=== PATIENT | male | born 1950 | race Caucasian/White ===

== ENCOUNTER 2019-08-31 10:16 | Outpatient (CLI) | payer MEDICARE, SELFPAY ==
--- NOTE | ~2019-08-31 | XR_ITS ---
EXAMINATION: XR shoulder RT min 2V DATE: 08/31/2019 10:41 INDICATION: 2 months of right shoulder pain after shoveling TECHNIQUE: AP internally and externally rotated, AP oblique externally rotated and transscapular Y vi ews of the right shoulder were obtained. COMPARISON: None FINDINGS: Old healed mid right clavicle fracture deformity. No other fractures identified.Alignment is otherwis e normal. Mild right glenohumeral and acromioclavicular osteoarthritis characterized by mild nonunifo rm joint space narrowing and small marginal osteophytes. Visualized portions of the right lung are cl ear. Soft tissues are unremarkable. IMPRESSION: 1. Old healed right clavicle fracture. No acute osseous abnormality. 2. Mild osteoarthritis at the right acromioclavicular and glenohumeral joints. Reviewed, dictated and finalized at location A.
== END 2019-08-31 10:17 | disposition home or self-care (01) ==
LOC: CHSIMG 10:18
PROVIDERS: PCP Internal Medicine; Visit Provider Internal Medicine
DX: M25.511 Pain in right shoulder (principal)
CPT/HCPCS: 73030

== ENCOUNTER 2019-09-08 10:37 | Outpatient (CLI) | payer MEDICARE, SELFPAY ==
--- NOTE | ~2019-09-08 | MR_ITS ---
EXAMINATION: MR shoulder RT wo con DATE: 09/08/2019 11:33 INDICATION: Right shoulder pain. TECHNIQUE: Magnetic resonance imaging (MRI) of the right shoulder was performed without intravenous c ontrast. Sequences included axial PD-weighted FS FSE, coronal oblique PD-weighted FS FSE and T2-weigh juan carlos FS FSE, and sagittal oblique T2-weighted FS FSE and T1-weighted FSE. COMPARISON: Right shoulder radiographs 08/31/2019 FINDINGS: Coracoacromial arch: The acromion undersurface is curved in morphology (type II). There is severe acromioclavicular joint osteoarthritis including inferiorly directed osteophytes. There is mild subacromial/subdeltoid bursit is. Rotator cuff: There is severe supraspinatus tendinopathy and moderate infraspinatus tendinopathy. Teres minor tendo n is normal. There is moderate subscapularis tendinopathy. There is no asymmetric fatty atrophy of th e rotator cuff muscle bellies. Biceps tendon and glenoid labrum: Biceps tendon is in bicipital groove. There is severe intra-articular biceps tendinopathy. There is a tear of superior labrum from 1:00 to 10:00 (SLAP tear). Fluid: There is a small glenohumeral joint effusion. Bones/cartilage: There is a partial thickness cartilage loss of superior glenoid. There is cartilage surface irregular ity of humeral head. Osteophytes are noted. IMPRESSION: 1. Severe rotator cuff tendinopathy. No tear. 2. Moderate glenohumeral joint chondrosis. SLAP tear. 3. Severe intra-articular biceps tendinopathy. 4. Severe acromioclavicular joint osteoarthritis. 5. Small glenohumeral joint effusion. 6. Mild subacromial/subdeltoid bursitis. Reviewed, dictated and finalized at location A.
== END 2019-09-08 10:38 | disposition home or self-care (01) ==
LOC: CHSIMG 10:38
PROVIDERS: PCP Internal Medicine; Visit Provider Internal Medicine
DX: M25.511 Pain in right shoulder (principal)
CPT/HCPCS: 73221

== ENCOUNTER 2019-09-15 07:04 | Outpatient (CLI) | payer MEDICARE, SELFPAY ==
[2019-09-15 08:11] LABS: Add Urine Microscopic? NO; Appearance Urine Clear (Clear); Bilirubin Urine Negative (Negative); Blood Urine Negative (Negative); Color Urine Yellow (Yellow); Glucose Urine UA Negative (Negative); Ketones Urine Negative (Negative); Leukocyte Esterase Ur Negative (Negative); Nitrate Urine Negative (Negative); Protein Urine Negative (Negative)
[2019-09-15 08:28] LABS: Alanine Aminotransferase 40 U/L (16-63); Albumin Level 3.8 g/dL (3.4-5.0); Alkaline Phosphatase 67 U/L (46-116); Anion Gap 11.3 mmol/L (7-16); Aspartate Amino Transferase 37 U/L (15-37); Bilirubin,Total 0.7 mg/dL (0.00-1.00); Blood Urea Nitrogen 21 mg/dL (7-18); Calcium 9.1 mg/dL (8.5-10.1); Carbon Dioxide 29 mmol/L (21-32); Chloride 103 mmol/L (98-108); Cholesterol 135 mg/dL (0-200); Creatine Kinase 234 U/L (39-308); Estimated Glomerular Filt Rate > 60; Glucose 94 mg/dL (70-99); HDL Direct 55 mg/dL (40-60); LDL Cholesterol Calculated 62 mg/dL (<130); Osmolality Calculated 291 mOsm/kg (285-295); Potassium 4.3 mmol/L (3.5-5.1); Prostate Specific Antigen 0.4 ng/mL (< OR = 4.0); Sodium 139 mmol/L (136-145); Total Protein 7.2 g/dL (6.4-8.2); Triglycerides 91 mg/dL (0-150)
== END 2019-09-15 07:05 | disposition home or self-care (01) ==
LOC: CHSLAB 07:06
PROVIDERS: PCP Internal Medicine; Visit Provider Internal Medicine
DX: E78.2 Mixed hyperlipidemia (principal); I10 Essential (primary) hypertension; Z12.5 Encounter for screening for malignant neoplasm of prostate
CPT/HCPCS: 36415; 80053; 80061; 81003; 82550; 84153; G0103

== ENCOUNTER 2019-09-18 16:52 | Outpatient (RCR) | payer MEDICARE, SELFPAY ==
--- NOTE | 2019-09-24 06:59 | PTOPEVAL ---
Thank you for referring Huang Singh to [facility] [place]. Please review, sign, date and return this plan of care VENITA. I agree with and certify that the following plan of care is medically necessary. Referring Physician Date Admitting Provider: Attending Provider: Rashaun Juárez MD Referring Provider: *PT Outpatient Evaluation Start: 09/18/19 17:06 Freq: Status: Active Protocol: Document 09/18/19 17:07 MECCA (Rec: 09/18/19 18:07 MECCA [id number]) Therapy Assessment Status Assessment Status Assessment Status Evaluation Evaluation Information Problem Diagnosis right adhesive capsulitis Onset 06/28/19 Subjective Information Pt. reports that he injured Query Text:As Reported By Patient/ the shoulder in May after Family shoveling. He notes a gradual increase in stiffness since doing the shoveling. He notes that reaching behind the back and overhead cause the most pain. He reports that he has had some pain with sleeping on the right, but it is getting easier. He states that his goal is to decrease pain and improve mobility. Prior Level of Function Activity Level (Last 3 Months) Occupation retired Hand Dominance Right Activity of Daily Living Ability Independent Indoor/Home Mobility Independent Community Mobility Independent Stairs Ability Independent Functional Cognition (Planning, Shopping Independent , Taking Medications) Cooking Yes Cleaning Yes Laundry Yes Shopping Yes Driving Yes Pain Assessment Pain Scale Pain Scale Used Numeric (1 - 10) Self Report Pain Assessment Right Shoulder(s) Reported Pain Level 5 Pain Score Pain Score 5: Self Report Upper Extremity Range of Motion General Upper Extremity Range of Motion Gross Upper Extremity Range of Motion right shoulder flexion 113 Comments degrees right shoulder ER 72 degrees right shoulder IR 21 degrees right shoulder horizontal adduction limited to 10 degrees Upper Extremity Muscle Strength Testing General Upper Extremity Strength Gross Upper Extremity Strength Comments right shoulder flexion 4/5
== END 2019-10-25 17:04 | disposition home or self-care (01) ==
LOC: CHSPT 16:52
PROVIDERS: PCP Internal Medicine; Visit Provider Internal Medicine
DX: M25.511 Pain in right shoulder (principal)
CPT/HCPCS: 97014; 97110; 97140; 97161; G0283

== ENCOUNTER 2019-10-06 07:50 | Outpatient (CLI) | payer MEDICARE, SELFPAY ==
[2019-10-08 12:13] LABS: SARS-CoV-2 RNA PCR Positive
== END 2019-10-06 07:51 | disposition home or self-care (01) ==
LOC: CHSLAB 07:52
PROVIDERS: PCP Internal Medicine; Visit Provider Internal Medicine
DX: U07.1 COVID-19 (principal)
CPT/HCPCS: 87635; C9803; U0003

== ENCOUNTER 2020-03-24 10:29 | Outpatient (CLI) | payer MEDICARE, SELFPAY ==
--- NOTE | ~2020-03-24 | US_ITS ---
EXAMINATION: US carotid duplex BI DATE: 03/24/2020 11:22 INDICATION: Bilateral carotid stenosis. TECHNIQUE: Grayscale, color Doppler, and pulsed Doppler images of the cervical carotid arteries were obtained. The degree of vessel stenosis is placed in one of the following categories: normal, <50%, 5 0-69%, >=70% but less than near-occlusion, near-occlusion, or total occlusion. Note that percent sten osis relative to normal distal artery lumen diameter is indirectly measured from velocity measurement s as described by Heladio, et al. Radiology 2003; 229:340-346. COMPARISON: Ultrasound 03/06/2019 FINDINGS: Bradycardia is noted. RIGHT: The right common carotid artery (CCA) peak systolic velocity (PSV) is 115 cm/s. The right internal ca rotid artery (ICA) PSV is 98 cm/s. The right ICA end-diastolic velocity (EDV) is 23 cm/s. The right I CA/CCA PSV ratio is 0.9. Grayscale and color Doppler images yield an estimate of <50% diameter reduct ion from plaque in the ICA. There is antegrade flow in the right vertebral artery. LEFT: The left CCA PSV is 101 cm/s. The left ICA PSV is 222 cm/s. The left ICA EDV is 60 cm/s. The left ICA /CCA PSV ratio is 2.2. Grayscale and color Doppler images yield an estimate of >=50% diameter reducti on from plaque in the ICA. There is antegrade flow in the left vertebral artery. IMPRESSION: 1. <50% stenosis in the right internal carotid artery. 2. 50-69% stenosis in the left internal carotid artery. 3. Bradycardia. Reviewed, dictated and finalized at location A. ERY HEAD FORMER
== END 2020-03-24 10:30 | disposition home or self-care (01) ==
LOC: CHSIMG 10:30
PROVIDERS: PCP Internal Medicine; Visit Provider Internal Medicine
DX: I65.23 Occlusion and stenosis of bilateral carotid arteries (principal)
CPT/HCPCS: 93880

== ENCOUNTER 2020-03-26 07:21 | Outpatient (CLI) | payer MEDICARE, SELFPAY ==
[2020-03-26 08:41] LABS: Alanine Aminotransferase 54 U/L (16-63); Alkaline Phosphatase 67 U/L (46-116); Anion Gap 6 mmol/L (8-16); Aspartate Amino Transferase 28 U/L (15-37); Bilirubin,Total 0.7 mg/dL (0.00-1.00); Blood Urea Nitrogen 23 mg/dL (7-18); Calcium 9.1 mg/dL (8.5-10.1); Carbon Dioxide 32 mmol/L (21-32); Chloride 99 mmol/L (98-108); Cholesterol 145 mg/dL (0-200); Creatine Kinase 51 U/L (39-308); Estimated Glomerular Filt Rate 59; Glucose 88 mg/dL (70-99); HDL Direct 52 mg/dL (40-60); LDL Cholesterol Calculated 56 mg/dL (<130); Osmolality Calculated 286 mOsm/kg (285-295); Potassium 4.1 mmol/L (3.5-5.1); Sodium 137 mmol/L (136-145); Total Protein 8.2 g/dL (6.4-8.2); Triglycerides 186 mg/dL (0-150)
[2020-03-26 10:37] LABS: Add Urine Microscopic? NO; Appearance Urine Clear (Clear); Bilirubin Urine Negative (Negative); Blood Urine Negative (Negative); Color Urine Yellow (Yellow); Glucose Urine UA Negative (Negative); Ketones Urine Negative (Negative); Leukocyte Esterase Ur Negative (Negative); Nitrate Urine Negative (Negative); Protein Urine Negative (Negative); Specific Grav Ur 1.025 (1.010-1.020); Urobilinogen Urine 0.2 mg/dL (0.2-1.0)
== END 2020-03-26 07:22 | disposition home or self-care (01) ==
PROVIDERS: PCP Internal Medicine; Visit Provider Internal Medicine
DX: E78.2 Mixed hyperlipidemia (principal); I10 Essential (primary) hypertension
CPT/HCPCS: 36415; 80053; 80061; 81003; 82550

== ENCOUNTER 2020-09-23 06:56 | Outpatient (CLI) | payer MEDICARE, SELFPAY ==
[2020-09-23 08:17] LABS: Alanine Aminotransferase 39 U/L (16-63); Albumin Level 3.9 g/dL (3.4-5.0); Alkaline Phosphatase 68 U/L (46-116); Anion Gap 13 mmol/L (8-16); Aspartate Amino Transferase 36 U/L (15-37); Bilirubin,Total 0.6 mg/dL (0.00-1.00); Blood Urea Nitrogen 27 mg/dL (7-18); Carbon Dioxide 27 mmol/L (21-32); Chloride 103 mmol/L (98-108); Cholesterol 135 mg/dL (0-200); Creatine Kinase 118 U/L (39-308); Estimated Glomerular Filt Rate > 60; Glucose 100 mg/dL (70-99); HDL Direct 38 mg/dL (40-60); LDL Cholesterol Calculated 60 mg/dL (<130); Osmolality Calculated 301 mOsm/kg (285-295); Potassium 4.7 mmol/L (3.5-5.1); Prostate Specific Antigen 0.6 ng/mL (< OR = 4.0); Sodium 143 mmol/L (136-145); Triglycerides 183 mg/dL (0-150)
[2020-09-23 10:06] LABS: Add Urine Microscopic? NO; Appearance Urine Clear (Clear); Bilirubin Urine Negative (Negative); Blood Urine Negative (Negative); Color Urine Light Yellow (Yellow); Glucose Urine UA Negative (Negative); Ketones Urine Negative (Negative); Leukocyte Esterase Ur Negative (Negative); Nitrate Urine Negative (Negative); Protein Urine Negative (Negative); Specific Grav Ur 1.015 (1.010-1.020); Urobilinogen Urine 0.2 mg/dL (0.2-1.0)
== END 2020-09-23 06:57 | disposition home or self-care (01) ==
LOC: CHSLAB 06:58
PROVIDERS: PCP Internal Medicine; Visit Provider Internal Medicine
DX: E78.2 Mixed hyperlipidemia (principal); I10 Essential (primary) hypertension; Z12.5 Encounter for screening for malignant neoplasm of prostate
CPT/HCPCS: 36415; 80053; 80061; 81003; 82550; 84153; G0103

== ENCOUNTER 2021-03-11 12:29 | Outpatient (CLI) | payer MEDICARE, SELFPAY ==
--- NOTE | ~2021-03-11 | US_ITS ---
EXAMINATION: US carotid duplex BI EXAM DATE: 03/11/2021 12:56 INDICATION: B/L carotid stenosis . TECHNIQUE: Grayscale, color and pulsed Doppler images of the cervical carotid arteries were obtained . The degree of vessel stenosis is placed in one of the following categories: normal, <50% stenosis, 50-69% stenosis, >=70% stenosis but less than near-occlusion, near-occlusion, or occlusion. Note that percent stenosis relative to normal distal artery lumen diameter is indirectly measured from velocit y measurements as described by Heladio, et al. Radiology 2003; 229:340-346. Comparison is made to prior examination from 03/24/2020. FINDINGS: RIGHT SIDE: Right common carotid artery peak systolic velocity (PSV in cm/s): 116 Right bulb/internal carotid artery peak systolic velocity (PSV in cm/s): 132 Right internal carotid artery end diastolic velocity (EDV in cm/s): 22 Right ICA/CCA peak systolic ratio: 1.1 Right external carotid artery peak systolic velocity (PSV in cm/s): 122 Right vertebral artery antegrade flow: yes There is mild carotid bulb plaque with discordant mildly elevated velocity. Visually, less than 50% stenosis category. LEFT SIDE: Left common carotid artery peak systolic velocity (PSV in cm/s): 98 Left bulb/internal carotid artery peak systolic velocity (PSV in cm/s): 239 Left internal carotid artery end diastolic velocity (EDV in cm/s): 48 Left ICA/CCA peak systolic ratio: 2.4 Left external carotid artery peak systolic velocity (PSV in cm/s): 109 Left vertebral artery antegrade flow: yes There is moderate right carotid bulb arteriosclerosis with moderately elevated velocity, visually 50- 69% stenosis. IMPRESSION: 1. Less than 50 percent stenosis in the right internal carotid artery. 2. 50-69% stenosis left internal carotid artery. Reviewed, dictated and finalized at location A. ATIONS MANAGEMENT TRAINEE
== END 2021-03-11 12:30 | disposition home or self-care (01) ==
LOC: CHSIMG 12:31
PROVIDERS: PCP Internal Medicine; Visit Provider Internal Medicine
DX: I65.23 Occlusion and stenosis of bilateral carotid arteries (principal)
CPT/HCPCS: 93880

== ENCOUNTER 2021-03-30 07:07 | Outpatient (CLI) | payer MEDICARE, SELFPAY ==
[2021-03-30 07:36] LABS: Hemoglobin A1C 5.2 % (<5.7)
[2021-03-30 08:16] LABS: Add Urine Microscopic? NO; Appearance Urine Clear (Clear); Bilirubin Urine Negative (Negative); Blood Urine Negative (Negative); Color Urine Light Yellow (Yellow); Glucose Urine UA Negative (Negative); Ketones Urine Negative (Negative); Leukocyte Esterase Ur Negative (Negative); Nitrate Urine Negative (Negative); Protein Urine Negative (Negative); Urobilinogen Urine 0.2 mg/dL (0.2-1.0)
[2021-03-30 09:16] LABS: Alanine Aminotransferase 41 U/L (16-63); Albumin Level 4.1 g/dL (3.4-5.0); Alkaline Phosphatase 71 U/L (46-116); Anion Gap 10 mmol/L (8-16); Aspartate Amino Transferase 26 U/L (15-37); Bilirubin,Total 0.5 mg/dL (0.00-1.00); Blood Urea Nitrogen 23 mg/dL (7-18); Calcium 8.8 mg/dL (8.5-10.1); Carbon Dioxide 28 mmol/L (21-32); Chloride 101 mmol/L (98-108); Cholesterol 135 mg/dL (0-200); Creatine Kinase 82 U/L (39-308); Estimated Glomerular Filt Rate > 60; Glucose 99 mg/dL (70-99); HDL Direct 45 mg/dL (40-60); LDL Cholesterol Calculated 61 mg/dL (<130); Osmolality Calculated 291 mOsm/kg (285-295); Potassium 4.4 mmol/L (3.5-5.1); Sodium 139 mmol/L (136-145); Total Protein 7.3 g/dL (6.4-8.2); Triglycerides 143 mg/dL (0-150)
== END 2021-03-30 07:08 | disposition home or self-care (01) ==
LOC: CHSLAB 07:09
PROVIDERS: PCP Internal Medicine; Visit Provider Internal Medicine
DX: R73.01 Impaired fasting glucose (principal); E78.2 Mixed hyperlipidemia; I10 Essential (primary) hypertension
CPT/HCPCS: 36415; 80053; 80061; 81003; 82550; 83036

== ENCOUNTER 2021-09-30 06:57 | Outpatient (CLI) | payer MEDICARE, SELFPAY ==
[2021-09-30 07:13] LABS: Add Urine Microscopic? NO; Appearance Urine Clear (Clear); Basophils Absolute Auto 0.06 K/mm3 (0.00-0.10); Basophils Percent Auto 1.1 % (0.0-1.0); Bilirubin Urine Negative (Negative); Blood Urine Negative (Negative); Color Urine Yellow (Yellow); Eosinophils Absolute Auto 0.18 K/mm3 (0.02-0.50); Eosinophils Percent Auto 3.3 % (1.0-6.0); Glucose Urine UA Negative (Negative); Hematocrit 41.4 % (37.0-46.0); Hemoglobin 14.2 g/dL (12.4-15.3); Immature Granulocyte Absolute 0.02 K/mm3 (0.00-0.00); Immature Granulocyte Percent A 0.4 % (0.0-0.0); Ketones Urine Negative (Negative); Leukocyte Esterase Ur Negative (Negative); Lymphocytes Absolute Auto 1.46 K/mm3 (1.10-4.50); Mean Corpuscular HGB Conc 34.3 g/dL (32.0-36.0); Mean Corpuscular Hemoglobin 32.6 pg (27.0-31.0); Mean Corpuscular Volume 95.2 fL (78.0-102.0); Mean Platelet Volume 10.1 fl (8.7-11.0); Monocytes Absolute Auto 0.54 K/mm3 (0.10-0.90); Neutrophils Absolute Auto 3.2 K/mm3 (1.7-7.2); Neutrophils Percent Auto 58.2 % (50.0-70.0); Nitrate Urine Negative (Negative); Platelet Count Result 198 K/mm3 (150-420); Protein Urine Negative (Negative); Red Blood Count 4.35 M/mm3 (4.70-6.10); Urobilinogen Urine 0.2 mg/dL (0.2-1.0); White Blood Count 5.4 K/mm3 (4.8-10.8); pH Urine 6.5 (5.0-8.0)
[2021-09-30 08:04] LABS: Alanine Aminotransferase 36 U/L (16-63); Albumin Level 3.9 g/dL (3.4-5.0); Alkaline Phosphatase 68 U/L (46-116); Anion Gap 6 mmol/L (8-16); Aspartate Amino Transferase 26 U/L (15-37); Bilirubin,Total 0.7 mg/dL (0.00-1.00); Blood Urea Nitrogen 23 mg/dL (7-18); Carbon Dioxide 29 mmol/L (21-32); Chloride 104 mmol/L (98-108); Cholesterol 129 mg/dL (0-200); Creatine Kinase 99 U/L (39-308); Estimated Glomerular Filt Rate 60; Glucose 96 mg/dL (70-99); HDL Direct 39 mg/dL (40-60); LDL Cholesterol Calculated 56 mg/dL (<130); Osmolality Calculated 291 mOsm/kg (285-295); Potassium 4.3 mmol/L (3.5-5.1); Prostate Specific Antigen 0.5 ng/mL (< OR = 4.0); Sodium 139 mmol/L (136-145); Total Protein 6.9 g/dL (6.4-8.2); Triglycerides 168 mg/dL (0-150)
== END 2021-09-30 06:58 | disposition home or self-care (01) ==
LOC: CHSLAB 06:59
PROVIDERS: PCP Internal Medicine; Visit Provider Internal Medicine
DX: E78.2 Mixed hyperlipidemia (principal); I10 Essential (primary) hypertension; Z00.00 Encounter for general adult medical examination without abnormal findings; K58.2 Mixed irritable bowel syndrome; K21.9 Gastro-esophageal reflux disease without esophagitis; Z12.5 Encounter for screening for malignant neoplasm of prostate
CPT/HCPCS: 36415; 80053; 80061; 81003; 82550; 84153; 85025; G0103

== ENCOUNTER 2022-03-24 12:20 | Outpatient (CLI) | payer MEDICARE, SELFPAY ==
--- NOTE | ~2022-03-24 | US_ITS ---
EXAMINATION: US carotid duplex BI DATE: 03/24/2022 13:12 INDICATION: Bilateral carotid artery stenosis TECHNIQUE: Grayscale, color Doppler, and pulsed Doppler images of the cervical carotid arteries were obtained. The degree of vessel stenosis is placed in one of the following categories: normal, <50%, 5 0-69%, >=70% but less than near-occlusion, near-occlusion, or total occlusion. Note that percent sten osis relative to normal distal artery lumen diameter is indirectly measured from velocity measurement s as described by Heladio, et al. Radiology 2003; 229:340-346. COMPARISON: 03/11/2021 FINDINGS: RIGHT: The right common carotid artery (CCA) peak systolic velocity (PSV) is 94 cm/s. The right internal car otid artery (ICA) PSV is 100 cm/s. The right ICA end-diastolic velocity (EDV) is 31 cm/s. The right I CA/CCA PSV ratio is 1.1. Grayscale and color Doppler images yield an estimate of <50% diameter reduct ion from plaque in the ICA. The external carotid artery (ECA) PSV is 127 cm/s. There is antegrade cristal w in the right vertebral artery. LEFT: The left CCA PSV is 110 cm/s. The left ICA PSV is 249 cm/s. The left ICA EDV is 51 cm/s. The left ICA /CCA PSV ratio is 2.3. Grayscale and color Doppler images yield an estimate of >=70% (but less than n ear occlusion) diameter reduction from plaque in the ICA. The ECA PSV is 123 cm/s. There is antegrade flow in the left vertebral artery. IMPRESSION: 1. <50% stenosis in the right internal carotid artery. 2. >=70% (but less than near occlusion) stenosis in the left internal carotid artery. Reviewed, dictated and finalized at location B. GAGE LOAN UNDERWRITER IMPRESSION: 1. <50% stenosis in the right internal carotid artery. 2. >=70% (but less than near occlusion) stenosis in the left internal carotid a rtery.
== END 2022-03-24 12:21 | disposition home or self-care (01) ==
LOC: CHSIMG 12:22
PROVIDERS: PCP Internal Medicine; Visit Provider Internal Medicine
DX: I65.23 Occlusion and stenosis of bilateral carotid arteries (principal)
CPT/HCPCS: 93880

== ENCOUNTER 2022-10-18 08:00 | Outpatient (CLI) | payer MEDICARE, SELFPAY ==
[2022-10-18 08:44] LABS: Basophils Absolute Auto 0.05 K/mm3 (0.00-0.10); Basophils Percent Auto 0.9 % (0.0-1.0); Eosinophils Absolute Auto 0.16 K/mm3 (0.02-0.50); Eosinophils Percent Auto 2.8 % (1.0-6.0); Hematocrit 43.9 % (37.0-46.0); Hemoglobin 14.7 g/dL (12.4-15.3); Immature Granulocyte Absolute 0.02 K/mm3 (0.00-0.00); Immature Granulocyte Percent A 0.4 % (0.0-0.0); Lymphocytes Absolute Auto 1.44 K/mm3 (1.10-4.50); Lymphocytes Percent Auto 25.5 % (18.0-42.0); Mean Corpuscular HGB Conc 33.5 g/dL (32.0-36.0); Mean Corpuscular Hemoglobin 31.9 pg (27.0-31.0); Mean Corpuscular Volume 95.2 fL (78.0-102.0); Mean Platelet Volume 10.7 fl (8.7-11.0); Monocytes Absolute Auto 0.52 K/mm3 (0.10-0.90); Monocytes Percent Auto 9.2 % (2.0-11.0); Neutrophils Absolute Auto 3.5 K/mm3 (1.7-7.2); Neutrophils Percent Auto 61.2 % (50.0-70.0); Platelet Count Result 197 K/mm3 (150-420); Red Blood Count 4.61 M/mm3 (4.70-6.10); White Blood Count 5.6 K/mm3 (4.8-10.8)
[2022-10-18 09:04] LABS: Hemoglobin A1C 5.4 % (<5.7)
[2022-10-18 09:11] LABS: Alanine Aminotransferase 42 U/L (16-63); Albumin Level 3.9 g/dL (3.4-5.0); Alkaline Phosphatase 77 U/L (46-116); Anion Gap 8 mmol/L (8-16); Aspartate Amino Transferase 27 U/L (15-37); Bilirubin,Total 0.8 mg/dL (0.00-1.00); Blood Urea Nitrogen 22 mg/dL (7-18); Calcium 9.4 mg/dL (8.5-10.1); Carbon Dioxide 29 mmol/L (21-32); Chloride 104 mmol/L (98-108); Creatine Kinase 82 U/L (39-308); Estimated Glomerular Filt Rate > 60; Glucose 95 mg/dL (70-99); HDL Direct 41 mg/dL (40-60); Osmolality Calculated 295 mOsm/kg (285-295); Potassium 4.7 mmol/L (3.5-5.1); Sodium 141 mmol/L (136-145); Total Protein 7.3 g/dL (6.4-8.2); Triglycerides 153 mg/dL (0-150)
[2022-10-18 09:24] LABS: Cholesterol 126 mg/dL (0-200); LDL Cholesterol Calculated 54 mg/dL (<130)
[2022-10-18 09:26] LABS: Appearance Urine Clear (Clear); Bilirubin Urine Negative (Negative); Blood Urine Negative (Negative); Color Urine Light Yellow (Yellow); Glucose Urine UA Negative (Negative); Ketones Urine Negative (Negative); Leukocyte Esterase Ur Negative (Negative); Nitrate Urine Negative (Negative); Protein Urine Negative (Negative); Specific Grav Ur 1.015 (1.010-1.020); Urobilinogen Urine 0.2 mg/dL (0.2-1.0); pH Urine 6.5 (5.0-8.0)
[2022-10-18 09:27] LABS: Add Urine Microscopic? NO
[2022-10-18 09:27] LABS: Creatinine Urine 149.31 mg/dL (40-278); MALB Creatinine Ratio 8.7 mg/g (0-30); Microalbumin Urine Random < 13.0 mg/L
== END 2022-10-18 08:01 | disposition home or self-care (01) ==
LOC: CHSLAB 08:02
PROVIDERS: PCP Internal Medicine; Visit Provider Internal Medicine
DX: I10 Essential (primary) hypertension (principal); E78.2 Mixed hyperlipidemia; I47.1 Supraventricular tachycardia; R73.01 Impaired fasting glucose
CPT/HCPCS: 36415; 80053; 80061; 81003; 82043; 82550; 83036; 85025

== ENCOUNTER 2022-10-29 13:57 | Outpatient (CLI) | payer MEDICARE, SELFPAY ==
--- NOTE | ~2022-10-29 | US_ITS ---
EXAMINATION: US aorta DATE: 10/29/2022 14:18 INDICATION: Abdominal aortic bruit. TECHNIQUE: Grayscale, color Doppler, and pulsed Doppler images of the aorta and common iliac arteries were obtained. COMPARISON: CT abdomen and pelvis 06/17/2005 FINDINGS: The aorta is normal in outer diameter. Aortic atherosclerosis is noted. The right common iliac artery is normal in caliber. The left common iliac artery is normal in caliber. IMPRESSION: 1. No abdominal aortic aneurysm. Reviewed, dictated and finalized at location E.
== END 2022-10-29 13:58 | disposition home or self-care (01) ==
LOC: CHSIMG 13:59
PROVIDERS: PCP Internal Medicine; Visit Provider Internal Medicine
DX: R09.89 Other specified symptoms and signs involving the circulatory and respiratory systems (principal)
CPT/HCPCS: 76775

== ENCOUNTER 2023-04-08 08:15 | Outpatient (CLI) | payer MEDICARE, SELFPAY ==
[2023-04-08 08:32] LABS: Basophils Absolute Auto 0.06 K/mm3 (0.00-0.10); Basophils Percent Auto 1.1 % (0.0-1.0); Eosinophils Absolute Auto 0.28 K/mm3 (0.02-0.50); Eosinophils Percent Auto 5.3 % (1.0-6.0); Hematocrit 41.5 % (37.0-46.0); Hemoglobin 13.9 g/dL (12.4-15.3); Immature Granulocyte Absolute 0.02 K/mm3 (0.00-0.00); Immature Granulocyte Percent A 0.4 % (0.0-0.0); Lymphocytes Absolute Auto 1.46 K/mm3 (1.10-4.50); Lymphocytes Percent Auto 27.9 % (18.0-42.0); Mean Corpuscular HGB Conc 33.5 g/dL (32.0-36.0); Mean Corpuscular Hemoglobin 31.8 pg (27.0-31.0); Mean Platelet Volume 9.8 fl (8.7-11.0); Monocytes Absolute Auto 0.59 K/mm3 (0.10-0.90); Monocytes Percent Auto 11.3 % (2.0-11.0); Neutrophils Absolute Auto 2.8 K/mm3 (1.7-7.2); Platelet Count Result 219 K/mm3 (150-420); Red Blood Count 4.37 M/mm3 (4.70-6.10); Red Cell Distribution Width 13.1 % (11.6-14.4); White Blood Count 5.2 K/mm3 (4.8-10.8)
[2023-04-08 09:16] LABS: Alanine Aminotransferase 39 U/L (16-63); Albumin Level 3.8 g/dL (3.4-5.0); Alkaline Phosphatase 60 U/L (46-116); Anion Gap 7 mmol/L (8-16); Aspartate Amino Transferase 27 U/L (15-37); Bilirubin,Total 0.7 mg/dL (0.00-1.00); Blood Urea Nitrogen 26 mg/dL (7-18); Calcium 8.8 mg/dL (8.5-10.1); Carbon Dioxide 31 mmol/L (21-32); Chloride 102 mmol/L (98-108); Cholesterol 126 mg/dL (0-200); Creatine Kinase 114 U/L (39-308); Estimated Glomerular Filt Rate > 60; Glucose 100 mg/dL (70-99); HDL Direct 49 mg/dL (40-60); LDL Cholesterol Calculated 50 mg/dL (<130); Osmolality Calculated 294 mOsm/kg (285-295); Potassium 4.4 mmol/L (3.5-5.1); Prostate Specific Antigen 0.7 ng/mL (< OR = 4.0); Sodium 140 mmol/L (136-145); Total Protein 6.8 g/dL (6.4-8.2); Triglycerides 136 mg/dL (0-150)
[2023-04-08 09:24] LABS: Appearance Urine Clear (Clear); Bilirubin Urine Negative (Negative); Blood Urine Negative (Negative); Color Urine Light Yellow (Yellow); Glucose Urine UA Negative (Negative); Ketones Urine Negative (Negative); Leukocyte Esterase Ur Negative (Negative); Nitrate Urine Negative (Negative); Protein Urine Negative (Negative); Urobilinogen Urine 0.2 mg/dL (0.2-1.0); pH Urine 6.5 (5.0-8.0)
[2023-04-08 09:28] LABS: Add Urine Microscopic? NO
== END 2023-04-08 08:16 | disposition home or self-care (01) ==
LOC: CHSLAB 08:17
PROVIDERS: PCP Internal Medicine; Visit Provider Internal Medicine
DX: I10 Essential (primary) hypertension (principal); E78.2 Mixed hyperlipidemia; I47.10 Supraventricular tachycardia, unspecified; Z12.5 Encounter for screening for malignant neoplasm of prostate; R97.20 Elevated prostate specific antigen [PSA]
CPT/HCPCS: 36415; 80053; 80061; 81003; 82550; 84153; 85025

== ENCOUNTER 2023-05-04 22:11 | Emergency (ER) | payer MEDICARE, SELFPAY ==
[2023-05-04] VITALS (16 sets, daily range): BP systolic 120–149; BP diastolic 66–70; PULSE 47–67; RESP 12–18; TEMP 36.3; O2SAT 95–98
--- NOTE | ~2023-05-04 | XR_ITS ---
EXAMINATION: XR chest 1V portable DATE: 05/04/2023 22:42 INDICATION: Anterior chest pain. TECHNIQUE: A single frontal view of the chest was obtained. COMPARISON: Chest 2 views 06/02/2018 FINDINGS: There is no pneumonia, pleural effusion, or pneumothorax. The heart size is normal. Surgica l clips in the right upper quadrant are likely from cholecystectomy. IMPRESSION: 1. No acute cardiopulmonary disease. Reviewed, dictated and finalized at location E. TER
--- NOTE | 2023-05-04 22:13 | ED.CHESTPAIN ---
HPI - Chest Pain General Chief Complaint: Chest Pain Stated Complaint: chest pain Time Seen by Provider: 05/04/23 22:13 Source: patient Mode of arrival: ambulatory Limitations: no limitations History of Present Illness HPI narrative: 73 old male with positive family history coronary artery disease hypertension, dyslipidemia, peripheral vascular disease status post left CEA presents to the ER with 1-1/2 hour history of -- substernal chest pain which started while he was sitting. No radiation of the pain. The pain was rated 7/10. no shortness of breath. No lightheadedness. No diaphoresis. -- Belching subsequently his chest pain decreased to 2/10 . It remains as 2/10. The patient has had a history of a stress test 1 year ago prior to his left carotid endarterectomy and this was noted to be unremarkable. He had a cardiac catheterization many years ago. MD complaint: chest pain Onset (ago): hour(s) ( 1.5 hours ago) Timing of current episode: constant Prior episodes: Yes Onset: during rest Pain location: substernal Pain radiation: none Pain scale (0-10): 7 Quality: aching Relieving factors: nothing Exacerbating factors: nothing Treatment prior to arrival: none Risk Factors Coronary artery disease risk factors: hyperlipidemia and hypertension Thoracic aortic dissection risk factors: longstanding hypertension Related Data Home Medications Medication Instructions Recorded Confirmed alprazolam 0.25 mg tablet 0.25 mg PO PRN 05/04/23 05/04/23 amlodipine 10 mg tablet 10 mg PO DAILY 05/04/23 05/04/23 atenolol 50 mg tablet 50 mg PO DAILY 05/04/23 05/04/23 atorvastatin 80 mg tablet 80 mg PO DAILY 05/04/23 05/04/23 losartan 100 1 tablet PO DAILY 05/04/23 05/04/23 mg-hydrochlorothiazide 25 mg tablet sildenafil (pulm.hypertension) 20 20 mg PO PRN 05/04/23 05/04/23 mg tablet tizanidine 4 mg tablet 4 mg PO DAILY 05/04/23 05/04/23 Allergies Allergy/AdvReac Type Severity Reaction Status Date / Time Sulfa (Sulfonamide Allergy Mild RASH Verified 05/04/23 22:20 Antibiotics) Review of Systems Review of Systems: All systems reviewed & are unremarkable except as noted in HPI and below Constitutional: Constitutional: Reports as per HPI and Reports no additional constitutional complaints Eyes: Eyes: Reports as per HPI and Reports no additional eye complaints ENT: Reports system reviewed and no additional complaints, except as documented and Reports as per HPI Cardiovascular: Cardiovascular: Reports as per HPI, Reports no additional cardiovascular complaints and Reports chest pain Respiratory: Respiratory: Reports as per HPI and Reports no additional respiratory complaints Gastrointestinal: Gastrointestinal: Reports as per HPI, Reports no additional gastrointestinal complaints and Reports nausea Genitourinary: Genitourinary: Reports no additional male genitourinary complaints and Reports as per HPI Musculoskeletal: Musculoskeletal: Reports no additional musculoskeletal complaints and Reports as per HPI Integumentary/Breasts: Skin/Breast: Reports system reviewed and no additional complaints, except as docu and Reports as per HPI Neurologic: Reports system reviewed and no additional complaints, except as documented and Reports as per HPI Psychiatric: Psychiatric: Reports no additional psychiatric complaints and Reports as per HPI Endocrine: Endocrine: Reports no additional endocrine complaints and Reports as per HPI Hematologic/Lymphatic: Hematologic/Lymphatic: Reports no additional hematologic/lymphatic complaints and Reports as per HPI Allergic/Immunologic: Allergic/Immunologic: Reports no additional allergic/immunologic complaints and Reports as per HPI [facility] Past Medical History Medical History (Updated 05/05/23 @ 01:13 by Julian Trujillo MD) Dyslipidemia Hypertension Peripheral vascular disease Surgical History Surgical History (Updated 05/04/23 @ 22:34 by Julian Trujillo MD) History of caroti
--- NOTE | 2023-05-04 22:15 | ECG_ITS ---
Measurements Intervals [place] Rate: 64 P: 47 [place]: 165 QRS: 44 QRSD: 105 T: 26 QT: 433 QTc: 447 Interpretive Statements SINUS RHYTHM NONSPECIFIC T-WAVE ABNORMALITY- INFERIOR LEADS BASELINE WANDER- III, AVR, AVF, V3-V6 BORDERLINE ECG NO PREVIOUS ECG AVAILABLE FOR COMPARISON Electronically Signed On 05-05-2023 8:18:14 LIVESTOCK SALES REPRESENTATIVE by oMo Doan D.O.
[2023-05-04] MEDS: ASPIRIN 81 MG CHEWABLE TABLET 324 MG PO (22:36)
[2023-05-04 22:40] LABS: Basophils Absolute Auto 0.06 K/mm3 (0.00-0.10); Basophils Percent Auto 0.9 % (0.0-1.0); Eosinophils Absolute Auto 0.13 K/mm3 (0.02-0.50); Hemoglobin 13.1 g/dL (12.4-15.3); Immature Granulocyte Absolute 0.01 K/mm3 (0.00-0.00); Immature Granulocyte Percent A 0.2 % (0.0-0.0); Lymphocytes Absolute Auto 2.23 K/mm3 (1.10-4.50); Lymphocytes Percent Auto 33.6 % (18.0-42.0); Mean Corpuscular HGB Conc 33.6 g/dL (32.0-36.0); Mean Corpuscular Hemoglobin 31.4 pg (27.0-31.0); Mean Corpuscular Volume 93.5 fL (78.0-102.0); Monocytes Absolute Auto 0.84 K/mm3 (0.10-0.90); Monocytes Percent Auto 12.7 % (2.0-11.0); Neutrophils Absolute Auto 3.4 K/mm3 (1.7-7.2); Neutrophils Percent Auto 50.6 % (50.0-70.0); Platelet Count Result 204 K/mm3 (150-420); Red Blood Count 4.17 M/mm3 (4.70-6.10); White Blood Count 6.6 K/mm3 (4.8-10.8)
[2023-05-04 22:56] LABS: INR 1.1; Partial Thromboplastin Time 27.1 SEC (23.90-30.70); Prothrombin Time 12.2 Seconds (9.50-12.10)
[2023-05-04 23:03] LABS: Lactic Acid Reflex 1.2 mmol/L (0.4-2.0)
[2023-05-04 23:04] LABS: Alanine Aminotransferase 31 U/L (16-63); Albumin Level 3.8 g/dL (3.4-5.0); Alkaline Phosphatase 67 U/L (46-116); Anion Gap 8 mmol/L (8-16); Aspartate Amino Transferase 24 U/L (15-37); Bilirubin,Total 0.7 mg/dL (0.00-1.00); Blood Urea Nitrogen 31 mg/dL (7-18); Calcium 9.3 mg/dL (8.5-10.1); Carbon Dioxide 28 mmol/L (21-32); Chloride 100 mmol/L (98-108); Estimated CRCL calculation 44 ml/min; Estimated Glomerular Filt Rate 59; Glucose 104 mg/dL (70-99); Lipase 59 U/L (16-77); NT Pro B Type Natriuretic Pept 43 pg/mL (0-125); Osmolality Calculated 288 mOsm/kg (285-295); Potassium 4.2 mmol/L (3.5-5.1); Sodium 136 mmol/L (136-145); Total Protein 7.2 g/dL (6.4-8.2); Troponin I 7.8 ng/L (0.00-60.4)
[2023-05-05] VITALS (11 sets, daily range): BP systolic 134–153; BP diastolic 69–75; PULSE 44–53; RESP 12–16; O2SAT 96–97
--- NOTE | 2023-05-05 00:40 | ECG_ITS ---
Measurements Intervals [place] Rate: 53 P: 33 [place]: 191 QRS: 25 QRSD: 102 T: 30 QT: 444 QTc: 418 Interpretive Statements SINUS BRADYCARDIA BORDERLINE ECG NO PREVIOUS ECG AVAILABLE FOR COMPARISON Electronically Signed On 05-05-2023 6:32:48 ESCROW REPRESENTATIVE by Moo Doan D.O.
[2023-05-05 01:07] LABS: Troponin I 8.6 ng/L (0.00-60.4)
== END 2023-05-05 01:26 | disposition home or self-care (01) ==
PROVIDERS: Emergency Provider Internal Medicine Critical Care Medicine; PCP Internal Medicine
DX: R07.89 Other chest pain (principal); I25.10 Atherosclerotic heart disease of native coronary artery without angina pectoris; E78.5 Hyperlipidemia, unspecified; I73.9 Peripheral vascular disease, unspecified; I10 Essential (primary) hypertension; Z79.899 Other long term (current) drug therapy; Z87.891 Personal history of nicotine dependence
CPT/HCPCS: 36415; 71045; 80053; 83605; 83690; 83880; 84484; 85025; 85610; 85730; 93005; 99284; A9270

== ENCOUNTER 2023-05-16 07:59 | Outpatient (RCR) | payer MEDICARE, SELFPAY ==
--- NOTE | 2023-05-16 09:07 | PTOPEVAL1 ---
Assessment and note entered by Cem Chaves Evaluation Information Assessment Status Evaluation Diagnosis low back pain Onset 04/10/23 Subjective Information Pt. reports that he injured the back while working on a cabinet and twisting. He reports that he went to the doctor and was given mm. relaxor. He states that he has avoided all bending and lifting . He reports that he is improved but still has pain. He states that he is very active and is returning to work next week. He states that pain is located on the left side, around the described PSIS. He states that pain is increased with described rotation and bending forward. He reports that he has mild pain at night, and sleep is rarely disturbed. He reports that his goal for therapy is to reduce his pain. Reported Pain Level Pain Score 3: Self Report Assessment PT Clinical Summary Pt. is a 73 year old male who enters the clinic with acute low back pain. He presents with impaired ROM, impaired flexibility, impaired proximal l.e. strength and pain on this date. Continued skilled PT is indicated in order to improve these areas to allow for the pt. to return to normal IADL performance without limitation. Plan of Care Interventions Electrical Stimulation,Hot Pack/Cold Pack,Manual Therapy,Neuro Re-education,Patient/Caregiver Educati,Therapeutic Activities,Therapeutic Exercise PT Services Indicated Yes Treatment Frequency and 2x/week x 6 visits Duration These treatments will address the objective and functional deficits as defined above. The patient will be advanced safely and appropriately in order for the patient to progress towards his/her prior level of function. Additional exercises will be introduced and as well as a comprehensive home exercise program upon discharge, if needed, ?to ensure carryover of functional gains achieved in the clinic. This treatment plan has been reviewed and agreement upon by the patient.
--- NOTE | 2023-05-16 09:10 | OPREHPOC ---
Outpatient Therapy Plan of Care This is a Multidisciplinary Plan of Care that may contain components documented by all disciplines (PT, OT, and ST.) PT Problem 1 PT Problem #1 Knowledge Deficit PT Goal 1 Goal Independent with a HEP addressing trunk mobility and core strength Target Visit 2 PT Problem 2 PT Problem #2 Pain PT Goal 1 Goal Pt. will report pain levels at 1/10 at worst with prolonged standing. Target Visit 6 PT Problem 3 PT Problem #3 Impaired Functional Mobil PT Goal 1 Goal Pt. will present with less than 10% limitation on the Modified Oswestry indicating improved function . Target Visit 6
--- NOTE | 2023-06-02 08:51 | PCPTNOTE ---
patient called and cancelled therapy today, but did not give a reason.
== END 2023-05-30 20:00 | disposition home or self-care (01) ==
LOC: CHSPT 07:59
PROVIDERS: Visit Provider Internal Medicine
DX: M54.50 Low back pain, unspecified (principal)
CPT/HCPCS: 97014; 97110; 97140; 97161; G0283

== ENCOUNTER 2023-10-11 11:12 | Outpatient (CLI) | payer MEDICARE, SELFPAY ==
[2023-10-11 11:31] LABS: Hematocrit 43.2 % (37.0-46.0); Hemoglobin 14.6 g/dL (12.4-15.3); Mean Corpuscular HGB Conc 33.8 g/dL (32-36); Mean Corpuscular Hemoglobin 31.7 pg (27.0-31.0); Mean Corpuscular Volume 93.9 fL (78.0-102.0); Mean Platelet Volume 9.9 fl (8.7-11.0); Platelet Count Result 207 K/mm3 (150-420); Red Cell Distribution Width 12.8 % (11.6-14.4); White Blood Count 6.1 K/mm3 (4.8-10.8)
[2023-10-11 11:48] LABS: Add Urine Microscopic? NO; Appearance Urine Clear (Clear); Bilirubin Urine Negative (Negative); Blood Urine Negative (Negative); Color Urine Light Yellow (Yellow); Glucose Urine UA Negative (Negative); Ketones Urine Negative (Negative); Leukocyte Esterase Ur Negative (Negative); Nitrate Urine Negative (Negative); Protein Urine Negative (Negative); Specific Grav Ur 1.015 (1.010-1.020); Urobilinogen Urine 0.2 mg/dL (0.2-1.0)
[2023-10-11 12:33] LABS: Alanine Aminotransferase 33 U/L (16-63); Alkaline Phosphatase 83 U/L (46-116); Anion Gap 8 mmol/L (4-12); Aspartate Amino Transferase 28 U/L (15-37); Blood Urea Nitrogen 17 mg/dL (7-18); Calcium 9.2 mg/dL (8.5-10.1); Carbon Dioxide 29 mmol/L (21-32); Chloride 100 mmol/L (98-108); Cholesterol 128 mg/dL (0-200); Creatine Kinase 92 U/L (39-308); Estimated Glomerular Filt Rate > 60; Free T4 Free Thyroxine 0.76 ng/dL (0.76-1.46); Glucose 98 mg/dL (70-99); HDL Direct 45 mg/dL (40-60); LDL Cholesterol Calculated 58 mg/dL (<130); Osmolality Calculated 285 mOsm/kg (285-295); Potassium 4.6 mmol/L (3.5-5.1); Sodium 137 mmol/L (136-145); Thyroid Stimulating Hormone 1.54 uIU/mL (0.36-3.74); Total Protein 7.3 g/dL (6.4-8.2); Triglycerides 125 mg/dL (0-150)
== END 2023-10-11 11:13 | disposition home or self-care (01) ==
LOC: CHSLAB 11:13
PROVIDERS: PCP Internal Medicine; Visit Provider Internal Medicine
DX: E78.2 Mixed hyperlipidemia (principal); I10 Essential (primary) hypertension; I47.10 Supraventricular tachycardia, unspecified; K58.2 Mixed irritable bowel syndrome
CPT/HCPCS: 36415; 80053; 80061; 81003; 82550; 84439; 84443; 85027

== ENCOUNTER 2024-05-10 07:56 | Outpatient (CLI) | payer MEDICARE, SELFPAY ==
--- OUTSIDE RECORDS SUMMARY | 2024-05-10 08:05 | XMS_ITS | Clinical Summary ---
Author Organization [facility] Address [address] [place] [id number] Care Team Providers Care Coverer Name Role Phone Rashaun Juárez MD Primary Care Provider [phone] Social History Tobacco Use Types Packs/Day Years Used Date Smoking Tobacco: Never Sex and Gender Information Value Date Recorded Sex Assigned at Not on file Legal Sex Male 10:51 PM CDT Gender Identity Not on file Sexual Orientation Not on file Last Filed Vital Signs Vital Sign Reading Time Taken Comments Blood Pressure 142/80 12/17/2005 12:47 PM CDT Pulse 72 12/17/2005 12:46 PM CDT Regu lar Temperature - - Respiratory Rate - - Oxygen Saturation - - Inhaled Oxygen Concentration - - Weight 76.7 kg (169 lb) 12/17/2005 12:46 PM CDT Height 170.2 cm (5' 7 ) 12/17/2005 12:46 PM CDT Body Mass Index 26.47 12/17/2005 12:46 PM CDT Plan of Treatment Health Maintenance Due Date Last Done Comments Colorectal Cancer Screening Colonoscopy (10 Years) 1950 Hepatitis C 1968 Annual Medicare Wellness Visit 02/11/2016 COVID-19 Vaccine ( season) 2023 12/01/2021, 12/02/2020, 04/22/2020, Additional history exists Influenza Adult (#1) 2023 12/16/2020, 12/25/2019, 11/22/2017, Additional history exists RSV Immunization or 60+ Years (1 - 1-dose 75+ series) 2026 DTaP, Tdap and Td Vaccines (2 - Td or Tdap) 12/23/2028 12/23/2018 Pneumococcal Vaccine: 65+ Years Completed 07/20/2017, 11/15/2014 Zoster Vaccines Completed 12/23/2018, 09/29, 05/02/2012 Meningococcal B Vaccine Aged Out No l onger eligible based on patient's age to complete this topic Meningococcal Vaccine Aged Out No mary padmini eligible based on patient's age to complete this topic RSV Immunizations Under 20 Months Aged Out No longer eligible based on patient's age to complete this topic Insurance [employer] Care Teams Coverer Relationship Specialty Start Date End Date Rashaun Juárez MD [address] [place] [id number] PCP - General INTERNAL MEDICINE 04/11/22
[2024-05-10 08:35] LABS: Hematocrit 43.9 % (37.0-46.0); Hemoglobin 14.5 g/dL (12.4-15.3); Mean Corpuscular Hemoglobin 31.3 pg (27.0-31.0); Mean Corpuscular Volume 94.6 fL (78.0-102.0); Mean Platelet Volume 10.4 fl (8.7-11.0); Platelet Count Result 221 K/mm3 (150-420); Red Blood Count 4.64 M/mm3 (4.70-6.10); Red Cell Distribution Width 13.1 % (11.6-14.4); White Blood Count 5.2 K/mm3 (4.8-10.8)
[2024-05-10 08:58] LABS: Add Urine Microscopic? NO; Appearance Urine Clear (Clear); Bilirubin Urine Negative (Negative); Blood Urine Negative (Negative); Color Urine Light Yellow (Yellow); Glucose Urine UA Negative (Negative); Ketones Urine Negative (Negative); Leukocyte Esterase Ur Negative (Negative); Nitrate Urine Negative (Negative); Protein Urine Negative (Negative); Specific Grav Ur 1.015 (1.010-1.020); Urobilinogen Urine 0.2 mg/dL (0.2-1.0); pH Urine 6.5 (5.0-8.0)
[2024-05-10 09:39] LABS: Alanine Aminotransferase 16 U/L (16-63); Alkaline Phosphatase 80 U/L (46-116); Anion Gap 8 mmol/L (4-12); Aspartate Amino Transferase 25 U/L (15-37); Bilirubin,Total 1.1 mg/dL (0.00-1.00); Blood Urea Nitrogen 25 mg/dL (7-18); Calcium 9.4 mg/dL (8.5-10.1); Carbon Dioxide 27 mmol/L (21-32); Chloride 105 mmol/L (98-108); Cholesterol 117 mg/dL (0-200); Creatine Kinase 120 U/L (39-308); Estimated Glomerular Filt Rate > 60; Glucose 96 mg/dL (70-99); HDL Direct 52 mg/dL (40-60); LDL Cholesterol Calculated 45 mg/dL (<130); Osmolality Calculated 294 mOsm/kg (285-295); Potassium 4.6 mmol/L (3.5-5.1); Prostate Specific Antigen 0.6 ng/mL (< OR = 4.0); Sodium 140 mmol/L (136-145); Total Protein 7.4 g/dL (6.4-8.2); Triglycerides 101 mg/dL (0-150)
== END 2024-05-10 07:57 | disposition home or self-care (01) ==
LOC: CHSLAB 07:57
PROVIDERS: PCP Internal Medicine; Visit Provider Internal Medicine
DX: I10 Essential (primary) hypertension (principal); E78.2 Mixed hyperlipidemia; R73.01 Impaired fasting glucose; Z12.5 Encounter for screening for malignant neoplasm of prostate
CPT/HCPCS: 36415; 80053; 80061; 81003; 82550; 83036; 84153; 85027; G0103

== ENCOUNTER 2024-11-07 07:18 | Outpatient (CLI) | payer MEDICARE, SELFPAY ==
[2024-11-07 07:37] LABS: Hematocrit 43.6 % (37.0-46.0); Hemoglobin 14.5 g/dL (12.4-15.3); Mean Corpuscular HGB Conc 33.3 g/dL (32-36); Mean Corpuscular Hemoglobin 31.7 pg (27.0-31.0); Mean Corpuscular Volume 95.4 fL (78.0-102.0); Platelet Count Result 215 K/mm3 (150-420); Red Blood Count 4.57 M/mm3 (4.70-6.10); White Blood Count 5.7 K/mm3 (4.8-10.8)
[2024-11-07 07:39] LABS: Add Urine Microscopic? YES; Appearance Urine Sl Cloudy (Clear); Glucose Urine UA Negative (Negative); Leukocyte Esterase Ur Negative (Negative); Nitrate Urine Negative (Negative); Specific Grav Ur 1.015 (1.010-1.020)
[2024-11-07 08:12] LABS: Alanine Aminotransferase 32 U/L (6-50); Albumin Level 4.4 g/dL (3.5-5.1); Alkaline Phosphatase 62 U/L (38-126); Anion Gap 9 mmol/L (4-12); Aspartate Amino Transferase 40 U/L (17-59); Bilirubin,Total 0.7 mg/dL (0.2-1.3); Blood Urea Nitrogen 20 mg/dL (9-20); Calcium 9.6 mg/dL (8.4-10.2); Carbon Dioxide 27 mmol/L (22-30); Chloride 105 mmol/L (98-107); Cholesterol 120 mg/dL (0-200); Creatine Kinase 112 U/L (55-170); Estimated Glomerular Filt Rate > 60; Glucose 103 mg/dL (65-110); HDL Direct 41 mg/dL; Osmolality Calculated 294 mOsm/kg (285-295); Potassium 4.5 mmol/L (3.4-5.0); Sodium 141 mmol/L (137-145); Total Protein 7.2 g/dL (6.3-8.2); Triglycerides 160 mg/dL (<150)
== END 2024-11-07 07:19 | disposition home or self-care (01) ==
LOC: CHSLAB 07:20
PROVIDERS: PCP Internal Medicine; Visit Provider Internal Medicine
DX: I10 Essential (primary) hypertension (principal); E78.2 Mixed hyperlipidemia; I47.10 Supraventricular tachycardia, unspecified; I25.10 Atherosclerotic heart disease of native coronary artery without angina pectoris
CPT/HCPCS: 36415; 80053; 80061; 81001; 82550; 85027